=== PATIENT | male | born 1965 | race Caucasian/White ===

== ENCOUNTER 2021-05-17 02:59 | Emergency (ER) | payer MEDICAID ==
[2021-05-17] MEDS ORDERED: Sodium Chloride 0.9% 10 ML Syringe FLUSH PRN ×2 (03:18→04:21)
[2021-05-17] MEDS ORDERED: Pantoprazole 40 MG Vial IVPUSH ONE (03:18)
--- NOTE | 2021-05-17 03:21 | EDM.PDOC ---
ED HPI GENERAL MEDICAL PROBLEM - General Chief Complaint: Abdominal Pain Stated Complaint: MEDICAL VIA [facility] Time Seen by Provider: 05/17/21 03:17 Source of Information: Reports: Patient, EMS History Limitations: Reports: No Limitations - History of Present Illness INITIAL COMMENTS - FREE TEXT/NARRATIVE: Vance is a 56-year-old male presenting to the ED for evaluation of hematemesis, abdominal distention with diffuse abdominal pain, abdominal rigidity and no melena. Patient has been seen in the [facility] on 05/07/2021 and evaluated for possible ventral hernia. He was seen by eDbby Brothers NP who examined the patient and ordered a CT of the abdomen and pelvis. She could not appreciate any significant hernia formation but felt that the abdomen was distended and there was hepatomegaly. The patient is a daily drinker consuming "way more than he should" and has had increasing abdominal distention over the last month. He was seen in follow-up at the [facility] on 05/09/2021 by another provider who reviewed the results of the CT with the patient. The feeling was that the CAT scan did not show any evidence for a hernia so the distention was likely due to hepatomegaly. The patient does not have any history of hepatitis in the past but he did do a comprehensive lab work-up, CBC, showing a normal CBC. The comprehensive metabolic panel showed a sodium of 138, potassium 3.5, chloride of 98 with a bicarbonate of 25, BUN of 6 with a creatinine of 0.85 and a glucose of 138. Total bili was elevated to 2.3. Alkaline phosphatase was elevated at 112 with the AST being 150 and the ALT being 54. Patient reports that several days later he was seen at the [facility], however, I do not have access to those records. Over the course of the last 24 hours, the patient has had increased abdominal pain with "heartburn" and took a dose of Pepto-Bismol. He has been having repeated hematemesis with clots, bright red blood, and dark blood. He also reports having melena that he noted today with dark tarry stools. It is possible the Pepto-Bismol may have made the stools dark but given his upper GI bleeding symptoms it is likely that this is truly melena. The patient has presented vitally stable with blood pressure of 155/84 and a pulse of 95 and SPO2 of 97% on room air. He denies any chest pain, shortness of breath, or lightheadedness. Abdomen Pain Score (Numeric/FACES): 5 - Related Data Allergies Allergy/AdvReac Type Severity Reaction Status Date / Time No Known Allergies Allergy Verified 05/07/21 14:53 Home Meds: Home Meds NK [No Known Home Meds] 05/17/21 [History] Social & Family History - Tobacco Use Tobacco Use Status *Q: Unknown Ever Used Tobacco ED ROS GENERAL - Review of Systems Review Of Systems: See Below Constitutional: Reports: No Symptoms HEENT: Reports: No Symptoms Respiratory: Reports: No Symptoms Cardiovascular: Reports: No Symptoms Endocrine: Reports: No Symptoms GI/Abdominal: Reports: Abdominal Pain (Generalized abdominal pain), Distension (Rigid abdomen), Hematemesis (4 times with bright red blood, dark blood, and clots), Melena (Patient reports several episodes of melena.), Nausea, Vomiting : Reports: No Symptoms Musculoskeletal: Reports: No Symptoms Skin: Reports: No Symptoms Neurological: Reports: No Symptoms Psychiatric: Reports: No Symptoms Hematologic/Lymphatic: Reports: No Symptoms ED EXAM, GI/ABD - Physical Exam Exam: See Below Exam Limited By: No Limitations General Appearance: Alert, Anxious, Moderate Distress Eyes: Bilateral: EOMI Throat/Mouth: Normal Inspection, Normal Lips, Normal Oropharynx, Normal Voice, No Airway Compromise, Other (Blood noted in the mouth) Head: Atraumatic, Normocephalic Neck: Normal Inspection, Supple Respiratory/Chest: No Respiratory Distress, Lungs Clear, Normal Breath Sounds Cardiovascular: Normal Peripheral Pulses, Regular Rate, Rhythm, No Murmur GI/Abdominal Exam: Guarding, Rigid, Tender (Diffusely tender), Abnormal Bowel Sounds (Decreased bowel sounds) Rectal (Males) Exam: Normal Exam, Black Stool Extremities: Normal Inspection, Normal Range of Motion Neurological: Alert, Oriented, Normal Cognition, No Motor/Sensory Deficits Psychiatric: Normal Affect Skin Exam: Warm, Dry. No: Pallor #1 Interpretation EKG Date: 05/17/21 Time: 04:05 Rhythm: NSR Rate (Beats/Min): 98 [place]: LAD-Left [place] Deviation P-Wave: Present QRS: Normal (Poor R wave progression in the precordial leads.) ST-T: Normal QT: Prolonged Comparison: NA - No Prior EKG Course - Vital Signs Last Recorded V/S: Last Vital Signs Temp 35.9 C L 05/17/21 04:33 Pulse 101 H 05/17/21 04:33 Resp 10 L 05/17/21 04:33 BP 121/80 05/17/21 04:33 Pulse Ox 95 05/17/21 04:33 - Orders/Labs/Meds Orders: Active Orders 24 hr Category Date Time Status TYPE AND SCREEN [BBK] Stat Lab 05/17/21 03:30 Received Octreotide [SandoSTATIN] 500 mcg Med 05/17/21 03:30 Active Sodium Chloride 0.9% [Normal Saline] 497.5 ml IV Q10H Sodium Chloride 0.9% [Normal Saline] 1,000 ml Med 05/17/21 03:30 Active IV ASDIRECTED Sodium Chloride 0.9% [Saline Flush] Med 05/17/21 03:18 Active 10 ml FLUSH ASDIRECTED PRN Sodium Chloride 0.9% [Saline Flush] Med 05/17/21 04:21 Active 10 ml FLUSH ASDIRECTED PRN Saline Lock Insert [OM.PC] Routine Oth 05/17/21 03:18 Ordered Saline Lock Insert [OM.PC] Routine Oth 05/17/21 04:21 Ordered Medication Orders Octreotide Acetate 500 mcg/ (Sodium Chloride) 500 mls @ 50 mls/hr IV Q10H YOBANI Last Admin: 05/17/21 03:39 Dose: 50 mcg/hr, 50 mls/hr Documented by: CARLY Sodium Chloride (Normal Saline) 1,000 mls @ 999 mls/hr IV ASDIRECTED YOBANI Last Admin: 05/17/21 03:25 Dose: 999 mls/hr Documented by: CARLY Sodium Chloride (Sodium Chloride 0.9% 10 Ml Syringe) 10 ml FLUSH ASDIRECTED PRN PRN Reason: Keep Vein Open Last Admin: 05/17/21 03:27 Dose: 10 ml Documented by: CARLY Sodium Chloride (Sodium Chloride 0.9% 10 Ml Syringe) 10 ml FLUSH ASDIRECTED PRN PRN Reason: Keep Vein Open Labs: Laboratory Tests 05/17/21 05/17/21 05/17/21 Range/Units 03:30 03:30 03:30 WBC 11.9 H (4.5-11.0) K/uL RBC 4.42 (4.30-5.90) M/uL Hgb 15.7 H (12.0-15.0) g/dL Hct 45.9 (40.0-54.0) % MCV 104 H (80-98) fL MCH 36 H (27-31) pg MCHC 34 (32-36) % Plt Count 176 (150-400) K/uL Neut % (Auto) 69.0 H (36-66) % Lymph % (Auto) 16.7 L (24-44) % Adams % (Auto) 11.7 H (2-6) % Eos % (Auto) 1.8 L (2-4) % Baso % (Auto) 0.8 (0-1) % PT 15.2 H (9.5-12.0) sec INR 1.40 H (0.80-1.20) APTT 29.3 (27.0-36.0) sec Sodium 137 L (140-148) mmol/L Potassium 3.2 L (3.6-5.2) mmol/L Chloride 94 L (100-108) mmol/L Carbon Dioxide 26 (21-32) mmol/L Anion Gap 20.2 H (5.0-14.0) mmol/L BUN 13 (7-18) mg/dL Creatinine 0.9 (0.8-1.3) mg/dL Est Cr Clr Drug Dosing 101.79 mL/min Estimated GFR (MDRD) > 60 (>60) Glucose 185 H (74-106) mg/dL Lactic Acid (0.4-2.0) mmol/L Calcium 8.4 L (8.5-10.1) mg/dL Total Bilirubin 2.6 H (0.2-1.0) mg/dL AST 124 H (15-37) U/L ALT 59 (12-78) U/L Alkaline Phosphatase 105 (46-116) U/L Total Protein 7.8 (6.4-8.2) g/dL Albumin 3.1 L (3.4-5.0) g/dL Globulin 4.7 H (2.3-3.5) g/dL Albumin/Globulin Ratio 0.7 L (1.2-2.2) Ethyl Alcohol mg/dL SARS CoV-2 RNA Rapid NEISHA 05/17/21 05/17/21 05/17/21 Range/Units 03:30 03:30 04:03 WBC (4.5-11.0) K/uL RBC (4.30-5.90) M/uL Hgb (12.0-15.0) g/dL Hct (40.0-54.0) % MCV (80-98) fL MCH (27-31) pg MCHC (32-36) % Plt Count (150-400) K/uL Neut % (Auto) (36-66) % Lymph % (Auto) (24-44) % Adams % (Auto) (2-6) % Eos % (Auto) (2-4) % Baso % (Auto) (0-1) % PT (9.5-12.0) sec INR (0.80-1.20) APTT (27.0-36.0) sec Sodium (140-148) mmol/L Potassium (3.6-5.2) mmol/L Chloride (100-108) mmol/L Carbon Dioxide (21-32) mmol/L Anion Gap (5.0-14.0) mmol/L BUN (7-18) mg/dL Creatinine (0.8-1.3) mg/dL Est Cr Clr Drug Dosing mL/min Estimated GFR (MDRD) (>60) Glucose (74-106) mg/dL Lactic Acid 5.3 H (0.4-2.0) mmol/L Calcium (8.5-10.1) mg/dL Total Bilirubin (0.2-1.0) mg/dL AST (15-37) U/L ALT (12-78) U/L Alkaline Phosphatase (46-116) U/L Total Protein (6.4-8.2) g/dL Albumin (3.4-5.0) g/dL Globulin (2.3-3.5) g/dL Albumin/Globulin Ratio (1.2-2.2) Ethyl Alcohol 32 mg/dL SARS CoV-2 RNA Rapid NEISHA Negative Meds: Medications Generic Name Dose Route Start Last Admin Trade Name Freq PRN Reason Stop Dose Admin Octreotide Acetate 500 mcg/ 500 mls @ 50 mls/hr 05/17/21 03:30 05/17/21 03:39 Sodium Chloride IV 50 mcg/hr Q10H YOBANI 50 mls/hr Administration 50 MCG/HR Sodium Chloride 1,000 mls @ 999 mls/hr 05/17/21 03:30 05/17/21 03:25 Normal Saline IV 999 mls/hr ASDIRECTED YOBANI Administration Sodium Chloride 10 ml 05/17/21 03:18 05/17/21 03:27 Sodium Chloride 0.9% 10 Ml Syringe FLUSH 10 ml ASDIRECTED PRN Administration Keep Vein Open Sodium Chloride 10 ml 05/17/21 04:21 Sodium Chloride 0.9% 10 Ml Syringe FLUSH ASDIRECTED PRN Keep Vein Open Discontinued Medications Generic Name Dose Route Start Last Admin Trade Name Freq PRN Reason Stop Dose Admin Droperidol 1.25 mg 05/17/21 03:41 05/17/21 03:52 Droperidol 5 Mg/2 Ml Sdv IVPUSH 05/17/21 03:42 1.25 mg ONETIME ONE Administration Pantoprazole Sodium 40 mg 05/17/21 03:18 05/17/21 03:26 Pantoprazole 40 Mg Vial IVPUSH 05/17/21 03:19 40 mg ONETIME ONE Administration - Re-Assessments/Exams Free Text/Narrative Re-Assessment/Exam: 05/17/21 03:40 is having hematemesis again. We initiated therapy with an octreotide drip, Protonix 40 mg IV push, and IV normal saline at 9 9 9/h. The patient had a CBC, comprehensive metabolic panel, ethanol, type and screen, PT and PTT, and lactic acid drawn. Second IV was established. Patient is given droperidol 1.25 mg IV for nausea and vomiting. 05/17/21 04:[address] of the abdomen and pelvis done on 05/07/2021 showing lung bases are clear. Liver is moderately enlarged. No focal masses identified. Gallbladder slightly distended. There is no wall thickening or pericholecystic inflammatory changes. The spleen is normal size and shape. The pancreas shows no mass or inflammatory change. The right adrenal gland is not visualized. The left is normal in appearance. The kidneys show no mass, stones, or hydronephrosis. The ureters are normal in course and caliber. The bladder is empty. There is no masses seen. The aorta shows atheromatous plaque without aneurysm. There is no suspicious retroperitoneal adenopathy. The small intestinal configuration is nonacute. The appendix is not identified. There is gas and feces throughout the colon. There is some prominent vessels in the subcutaneous abdominal fat and anterior epigastric abdomen. No esophageal varices are identified. Impression: Moderate hepatomegaly. Distended gallbladder. Prominent subcutaneous vessels may represent medusa. Mesenteric vein is patent. 05/17/21 04:19 I reviewed the patient's labs showing a CBC with a leukocyte count of 11.9, hemoglobin of 15.7, hematocrit of 45.9, and platelet count of 176,000. The patient's comprehensive metabolic panel significant for sodium 137, potassium 3.2, chloride of 94, bicarbonate of 26, BUN of 13 with a creatinine of 0.9 and a glucose of 185. Venous lactic acid is 5.3. Calcium is 8.4. Total bilirubin is 2.6. AST is 124, ALT is 59, alkaline phosphatase is 105 and ethanol is 32. 05/17/21 04:20 PT/INR is 15.2/1.4. PTT is 29.3. Hemoccult is positive for blood. My concern is that the patient still having significant hematemesis passing bright red blood and clots despite receiving Zofran 8 mg and droperidol 1.25 mg. He does consume a large amount of alcohol raising concern for bleeding varices. His initial hemoglobin is 15.7, however, I do not know if he has Hemoccult abraded at this point as he just started vomiting blood several hours ago. I did contact which is the crisis center in the [facility] to locate an available facility to transfer the patient as [facility] and [facility] are both at capacity. Currently there are no ICU beds available for the patient, however, as we are critical access hospital I feel that this patient needs to go somewhere where there are facilities that can deal with GI bleeding in the emergency room so they are checking for locales for that. I discussed the case with Dr. Cruz , Hospitalist from [facility] who accepts the patient as a direct admission to their hospital. [facility] will transport the patient to [facility]. Departure - Departure Time of Disposition: 05:12 Disposition: DC/Tfer to [facility] 02 Clinical Impression: Upper GI bleeding, History of alcohol use, Hepatomegaly - Discharge Information Referrals: PCP,None [Primary Care Provider] - Forms: ED Department Discharge Critical Care Note - Critical Care Note Total Time (mins): 30 Comments: 30 minutes of critical care time excluding procedures. This was to evaluate patient, review medical records, and arrange for further care of the patient. Sepsis Event Note (ED) - Evaluation Sepsis Screening Result: Possible Sepsis Risk - Focused Exam Vital Signs: Vital Signs Temp Pulse Resp BP Pulse Ox 05/17/21 04:33 35.9 C L 101 H 10 L 121/80 95 05/17/21 04:03 101 H 10 L 127/83 91 L 05/17/21 03:42 96 10 L 142/88 H 92 L 05/17/21 03:15 35.9 C L 99 18 140/83 96 05/17/21 03:03 35.9 C L 99 18 140/83 96 - Problem List & Annotations (1) Hepatomegaly SNOMED Code(s): 09891214 Code(s): R16.0 - HEPATOMEGALY, NOT ELSEWHERE CLASSIFIED Status: Acute Priority: High Current Visit: Yes (2) History of alcohol use SNOMED Code(s): 766249396 Code(s): Z87.898 - PERSONAL HISTORY OF OTHER SPECIFIED CONDITIONS Status: Acute Priority: High Current Visit: Yes (3) Upper GI bleeding SNOMED Code(s): 14849329 Code(s): K92.2 - GASTROINTESTINAL HEMORRHAGE, UNSPECIFIED Status: Acute Priority: High Current Visit: Yes - Problem List Review Problem List Initiated/Reviewed/Updated: Yes - My Orders Last 24 Hours: My Active Orders 05/17/21 03:18 Sodium Chloride 0.9% [Saline Flush] 10 ml FLUSH ASDIRECTED PRN Saline Lock Insert [OM.PC] Routine 05/17/21 03:30 TYPE AND SCREEN [BBK] Stat Octreotide [SandoSTATIN] 500 mcg Sodium Chloride 0.9% [Normal Saline] 497.5 ml IV Q10H Sodium Chloride 0.9% [Normal Saline] 1,000 ml IV ASDIRECTED 05/17/21 04:21 Sodium Chloride 0.9% [Saline Flush] 10 ml FLUSH ASDIRECTED PRN Saline Lock Insert [OM.PC] Routine - Assessment/Plan Last 24 Hours: My Active Orders 05/17/21 03:18 Sodium Chloride 0.9% [Saline Flush] 10 ml FLUSH ASDIRECTED PRN Saline Lock Insert [OM.PC] Routine 05/17/21 03:30 TYPE AND SCREEN [BBK] Stat Octreotide [SandoSTATIN] 500 mcg Sodium Chloride 0.9% [Normal Saline] 497.5 ml IV Q10H Sodium Chloride 0.9% [Normal Saline] 1,000 ml IV ASDIRECTED 05/17/21 04:21 Sodium Chloride 0.9% [Saline Flush] 10 ml FLUSH ASDIRECTED PRN Saline Lock Insert [OM.PC] Routine
[2021-05-17] MEDS ORDERED: Octreotide 500 MCG in Sodium Chloride 0.9% 497.5 ML IV SCH (03:30)
[2021-05-17] MEDS ORDERED: Sodium Chloride 0.9% 1,000 ML IV SCH (03:30)
[2021-05-17] MEDS ORDERED: Pantoprazole 80 MG in Sodium Chloride 0.9% 100 ML IV SCH (05:30)
--- NOTE | 2021-05-17 06:30 | CRLCT ---
For Patients: As a result of the Century Cures Act, medical imaging exams and procedure reports are released immediately into your electronic medical record. You may view this report before your referring provider. If you have questions, please contact your health care provider. Indication: Rigid abdomen Technique: Volumetric multidetector CT images of the abdomen and pelvis were without the administration of intravenous contrast. Comparison: CT abdomen and pelvis May 07, 2021 Findings: The lung bases are clear. The liver is enlarged with hepatic steatosis. There are focal hypodensities, too small to characterize. The gallbladder is unremarkable without evidence of radiopaque calculus. There is no significant common biliary ductal dilatation or abrupt cut off. The spleen is normal in attenuation and size. The stomach and duodenum are grossly unremarkable. The pancreas is normal in attenuation without significant atrophy. The adrenal glands are unremarkable. There is moderate bilateral perinephric stranding without evidence of radiopaque calculus were distal struck [place]. There is mild to moderate stool seen throughout the colon with minimal colonic diverticulosis without evidence of diverticulitis. The appendix is unremarkable. There is no significant mesenteric, retroperitoneal, or pelvic sidewall lymph nodes. The aorta is non aneurysmal with scattered atherosclerotic calcification. The solid pelvic viscera are grossly unremarkable. There is no free fluid or free air. There is demonstration of a large recanalized umbilical vein with minimal varices seen at the umbilicus. The lumbar vertebral body heights are grossly maintained with minimal retrolisthesis of L2 on L3. There is moderate facet arthrosis. Impression: No definite acute intra-abdominal abnormalities appreciated. Redemonstration of markedly enlarged liver with hepatic steatosis. 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 Please note that all CT scans at this facility use dose modulation, iterative reconstruction, and/or weight-based dosing when appropriate to reduce radiation dose to as low as reasonably achievable. Dictated by Anil Nobles MD @ 05/17/2021 6:27:[address] Anil Nobles @ May 17 2021 6:27AM
== END 2021-05-17 05:40 ==
LOC: JP.ED 02:59
DX: K92.2 Gastrointestinal hemorrhage, unspecified (principal); R16.0 Hepatomegaly, not elsewhere classified; F10.10 Alcohol abuse, uncomplicated; Y90.1 Blood alcohol level of 20-39 mg/100 ml; Z20.822 Contact with and (suspected) exposure to COVID-19
CPT/HCPCS: 36415; 74176; 80053; 80307; 82272; 83605; 85025; 85610; 85730; 86850; 86900; 86901; 87635; 96365; 96366; 96375; 96376; 99285; C9113; J1790; J2354; J7030; J7040; U0002